=== PATIENT | female | born 1960 | race Caucasian/White ===

== ENCOUNTER 2018-06-06 18:08 | Emergency (ER) | payer MEDICAID ==
[~2018-06-06] VITALS: Ht 177.8 cm; Wt 68.0 kg
[2018-06-06] MEDS ORDERED: KETOROLAC 30MG/ML VIAL IM ONE (20:30)
[2018-06-06 20:58] VITALS: BP 169/99
[2018-06-06] MEDS ORDERED: CYCLOBENZAPRINE 10MG TABLET PO SCH (22:00)
== END 2018-06-06 21:04 | disposition home or self-care (01) ==
LOC: ER 19:26
DX: G89.29 Other chronic pain (principal); M25.50 Pain in unspecified joint; M79.10 Myalgia, unspecified site; F17.200 Nicotine dependence, unspecified, uncomplicated; Z88.0 Allergy status to penicillin
CPT/HCPCS: 96372; 99283; J1885

== ENCOUNTER 2018-06-07 14:26 | Emergency (ER) | payer MEDICAID ==
[~2018-06-07] VITALS: Ht 170.2 cm; Wt 75.0 kg
[2018-06-07] MEDS ORDERED: KETOROLAC 15MG/ML VIAL IM ONE (16:15)
[2018-06-07 17:19] VITALS: BP 162/87
== END 2018-06-07 17:40 | disposition home or self-care (01) ==
LOC: ER 16:04
DX: M25.50 Pain in unspecified joint (principal); G89.29 Other chronic pain; Z88.0 Allergy status to penicillin; Z98.890 Other specified postprocedural states
CPT/HCPCS: 96372; 99283; J1885